=== PATIENT | female | born 1975 | race American Indian/Alaskan Native ===

== ENCOUNTER → 2018-12-03 | Outpatient (CLI) | payer OTHER ==
[~2018-12-03] MED LIST: DULO30 PO; GABA300 PO; HYDCHL12.5; Naprosyn500 MG PO; Zantac150 MG PO
== END | disposition home or self-care (01) ==
LOC: LAB 10:00 → LAB SHORT 10:00
DX: R10.9 Unspecified abdominal pain (principal)
CPT/HCPCS: 87338

== ENCOUNTER → 2019-01-07 | Outpatient (CLI) | payer OTHER | LOC: LAB SHORT 14:36 → LAB 14:36 | DX: K27.9 Peptic ulcer, site unspecified, unspecified as acute or chronic, without hemorrhage or perforation (principal); B96.81 Helicobacter pylori [H. pylori] as the cause of diseases classified elsewhere | CPT/HCPCS: 87338 ==

== ENCOUNTER → 2019-03-05 | Outpatient (CLI) | payer OTHER ==
[~2019-03-05] MED LIST changes: +DULO60 PO; +HYDHCL25 PO; +HYDSUL200 PO; +Nicoderm Cq1 EAC1 TD; +ONDA4ODT MM; +PRAZ1 PO
== END | disposition home or self-care (01) ==
LOC: LAB SHORT 10:38 → LAB 10:38
DX: K27.9 Peptic ulcer, site unspecified, unspecified as acute or chronic, without hemorrhage or perforation (principal)
CPT/HCPCS: 87338

== ENCOUNTER 2019-04-16 21:05 | Emergency (ER) | payer OTHER ==
[~2019-04-16] VITALS: Ht 152.4 cm; Wt 73.5 kg
[2019-04-16] MEDS ORDERED: GABA600 PO (21:21)
[2019-04-16] MEDS ORDERED: DULO30 PO (21:21)
[2019-04-16] MEDS ORDERED: TRAM50 PO (22:17)
== END 2019-04-16 22:24 | disposition home or self-care (01) ==
LOC: ER 21:05
DX: S80.01XA Contusion of right knee, initial encounter (principal); M79.671 Pain in right foot; W01.0XXA Fall on same level from slipping, tripping and stumbling without subsequent striking against object, initial encounter; Z88.8 Allergy status to other drugs, medicaments and biological substances; Z79.899 Other long term (current) drug therapy; I10 Essential (primary) hypertension; F17.200 Nicotine dependence, unspecified, uncomplicated
CPT/HCPCS: 73630; 99283-25

== ENCOUNTER 2019-05-09 12:44 | Day surgery (SDC) | payer OTHER ==
[~2019-05-09] VITALS: Ht 152.4 cm; Wt 72.7 kg
[~2019-05-09 12:44] MED LIST changes: +GABA600 PO; +TRAM50 PO
== END 2019-05-09 15:49 | disposition home or self-care (01) ==
LOC: ORSCSDS 12:44
PROVIDERS: Internal Medicine Gastroenterology
PROC: 0DB58ZX Excision of Esophagus, Via Natural or Artificial Opening Endoscopic, Diagnostic (ICD-10-PCS; principal; 2019-05-09 14:30)
PROC: 0D758ZZ Dilation of Esophagus, Via Natural or Artificial Opening Endoscopic (ICD-10-PCS; principal; 2019-05-09 14:30)
PROC: 0DB68ZX Excision of Stomach, Via Natural or Artificial Opening Endoscopic, Diagnostic (ICD-10-PCS; principal; 2019-05-09 14:30)
DX: R10.13 Epigastric pain (principal); K29.70 Gastritis, unspecified, without bleeding; K29.80 Duodenitis without bleeding; R13.10 Dysphagia, unspecified; K21.9 Gastro-esophageal reflux disease without esophagitis; R11.2 Nausea with vomiting, unspecified; F32.9 Major depressive disorder, single episode, unspecified; R10.9 Unspecified abdominal pain; K44.9 Diaphragmatic hernia without obstruction or gangrene; I10 Essential (primary) hypertension; F17.210 Nicotine dependence, cigarettes, uncomplicated; Z79.899 Other long term (current) drug therapy
CPT/HCPCS: 88305; 88342; J2704; J7120

== ENCOUNTER 2019-07-27 16:15 | Emergency (ER) | payer OTHER ==
[~2019-07-27] VITALS: Ht 152.4 cm; Wt 74.4 kg
[2019-07-27 16:58] LABS: Source, Urine Clean Catch
[2019-07-27 17:03] LABS: Bilirubin, Urine Neg (Neg); Blood, Urine Neg (Neg); Glucose Qualitative, Urine Neg (Neg); Ketones, Urine Neg (Neg); Leukocyte Esterase, Urine 1+ (Neg); Nitrite, Urine Neg (Neg); Protein, Urine Neg (Neg); Specific Gravity, Urine 1.015 (1.003-1.022); Urobilinogen, Urine NORM (Normal)
[2019-07-27 17:07] LABS: BASOPHILS ABSOLUTE AUTO 0.05 K/mm3 (0.00-0.23); BASOPHILS PERCENT AUTO 1 % (0-2); EOSINOPHILS ABSOLUTE AUTO 0.09 K/mm3 (0.00-0.68); EOSINOPHILS PERCENT AUTO 1 % (0-6); Hematocrit 42.1 % (33.0-51.0); Hemoglobin 13.8 g/dL (11.5-16.0); IMMATURE GRAN ABSOLUTE AUTO 0.05 K/mm3 (0.00-0.10); IMMATURE GRAN PERCENT AUTO 1 % (0-1); LYMPHOCYTES ABSOLUTE AUTO 1.63 K/mm3 (0.84-5.20); LYMPHOCYTES PERCENT AUTO 15 % (21-46); MONOCYTES ABSOLUTE AUTO 0.59 K/mm3 (0.16-1.47); MONOCYTES PERCENT AUTO 6 % (4-13); Mean Corpuscular HGB 31.8 pg (26.0-34.0); Mean Corpuscular HGB Conc 32.8 g/dL (31.5-36.5); Mean Corpuscular Volume 97 fL (80-100); Mean Platelet Volume 9.8 fL (9.1-12.4); NEUTROPHILS ABSOLUTE AUTO 8.22 K/mm3 (1.96-9.15); NEUTROPHILS PERCENT AUTO 77 % (41-73); Platelet Count 294 K/mm3 (150-400); RDW Coefficient Variation 12.9 % (11.7-14.2); RDW Standard Deviation 46.3 fL (35.1-46.3); Red Blood Cell Count 4.34 M/mm3 (3.80-5.20); White Blood Cell Count 10.63 K/mm3 (4.00-11.30)
[2019-07-27 17:09] LABS: Appearance, Urine Clear (Clear); Color, Urine Yellow (P-Yellow)
[2019-07-27 17:10] LABS: Bacteria Mod /hpf; Mucus Light (0-Heavy); Red Blood Cells, Urine 0-2 /hpf (0-2); Squamous Epithelial Cells Mod /hpf (Few); White Blood Cells, Urine 0-2 /hpf (0-5)
[2019-07-27 17:27] LABS: Magnesium, Blood 2.1 mg/dL (1.6-2.4)
[2019-07-27 17:28] LABS: Alanine Aminotransfer (ALT/SGP 18 U/L (12-78); Albumin, Blood 3.8 g/dL (3.4-5.0); Albumin/Globulin Ratio 0.8 (0.8-1.8); Alk Phos 84 U/L (50-136); Anion Gap 6 mmol/L (6-16); Aspartate Aminotrans (AST/SGOT 23 U/L (12-37); Bilirubin, Total 0.3 mg/dL (0.1-1.0); Blood Urea Nitrogen 8 mg/dL (8-24); Bun/Creatinine Ratio 12.8 (12.0-20.0); CO2, Blood 26 mmol/L (21-32); Calcium, Blood 8.5 mg/dL (8.5-10.1); Chloride, Blood 109 mmol/L (98-108); Creatinine, Blood 0.63 mg/dL (0.40-1.00); Globulin, Blood 4.5 g/dL (2.2-4.0); Glomerular Filtration Rate >60 (60-); Glucose, Blood 105 mg/dL (70-99); Potassium, Blood 3.5 mmol/L (3.5-5.5); Sodium, Blood 141 mmol/L (136-145); Total Protein, Blood 8.3 g/dL (6.4-8.2)
== END 2019-07-27 18:12 | disposition home or self-care (01) ==
LOC: ER 16:15
PROVIDERS: Emergency Medicine
DX: G89.29 Other chronic pain (principal); R10.9 Unspecified abdominal pain; I10 Essential (primary) hypertension; M79.7 Fibromyalgia; Z88.8 Allergy status to other drugs, medicaments and biological substances; Z79.899 Other long term (current) drug therapy; F17.200 Nicotine dependence, unspecified, uncomplicated
CPT/HCPCS: 36415; 80053; 81001; 83690; 83735; 85025; 87077; 87086; 87186; 96374; 96375; 99284-25; J1200; J1630

== ENCOUNTER 2019-08-18 11:34 | Emergency (ER) | payer OTHER | END 2019-08-18 11:43 | disposition left against medical advice (07) | LOC: ER 11:34 | DX: Z53.21 Procedure and treatment not carried out due to patient leaving prior to being seen by health care provider (principal) ==

== ENCOUNTER 2020-03-24 12:07 | Emergency (ER) | payer OTHER ==
[~2020-03-24] VITALS: Ht 152.4 cm; Wt 63.5 kg
== END 2020-03-24 12:20 | disposition left against medical advice (07) ==
LOC: ER 12:07
DX: Z53.21 Procedure and treatment not carried out due to patient leaving prior to being seen by health care provider (principal)